=== PATIENT | female | born 1950 | race Caucasian/White ===

== ENCOUNTER 2022-02-07 11:09 | Emergency (ER) | payer MEDICARE, SELFPAY ==
--- NOTE | ~2022-02-07 | XR_ITS ---
EXAMINATION: XR chest 2V 02/07/2022 11:54 INDICATION: Post Covid cough PROCEDURE: 2 view chest COMPARISON: No prior studies for comparison. FINDINGS: The lungs are clear. The cardiomediastinal silhouette is within normal limits. There are no pleural effusions. There is no pneumothorax suspected. The lungs are hyperinflated which is cons istent with, but not diagnostic of chronic obstructive pulmonary disease. IMPRESSION: 1: NO ACUTE CARDIOPULMONARY DISEASE. Reviewed, dictated and finalized at location A.
[2022-02-07 11:16] VITALS: BP 105/64; PULSE 72; RESP 20; TEMP 36.3; O2SAT 100
--- NOTE | 2022-02-07 11:30 | ED.URI ---
HPI - URI/Sore Throat General Chief Complaint: Upper Respiratory Infection Stated Complaint: follow up from covid Time Seen by Provider: 02/07/22 11:32 Source: patient, RN notes reviewed and old records reviewed Mode of arrival: ambulatory Limitations: no limitations History of Present Illness HPI Narrative: 71 year old female who presents to [facility] with complaints of acute cough and chest congestion post COVID. Patient reports that she was diagnosed with COVID on 01/25/2022 and cough is lingering with some mucous production. Patient reports that sh has been taking Mucinex and using cough drops but not helping cough which is keeping her awake at night. Patient reports allergy to Codeine and reports that she can't use albuterol because of her history of a-fib. Patient states that her doctor ordered Flovent for her but not helping much. MD elicited complaint: cough and other (COVID 01/25/2022) Onset (ago): week(s) (almost 2 weeks) Description of mucous: clear Treatments prior to arrival: other (Mucinex, cough drops, Flovent) Related Data Home Medications Medication Instructions Recorded Confirmed alendronate 70 mg tablet 70 mg PO WEEKLY 02/07/22 02/07/22 apixaban 5 mg tablet (Eliquis) 5 mg PO BID 02/07/22 02/07/22 diltiazem HCl 180 mg 180 mg PO DAILY 02/07/22 02/07/22 capsule,extended release 24 hr dronedarone 400 mg tablet (Multaq) 400 mg PO HS 02/07/22 02/07/22 ezetimibe 10 mg tablet 10 mg PO DAILY 02/07/22 02/07/22 fluticasone propionate 110 50 mcg inhalation DAILY 02/07/22 02/07/22 mcg/actuation HFA aerosol inhaler (Flovent HFA) gabapentin 100 mg capsule 100 mg PO HS 02/07/22 02/07/22 levothyroxine 150 mcg tablet 150 mcg PO DAILY 02/07/22 02/07/22 lisinopril 5 mg tablet 5 mg PO DAILY 02/07/22 02/07/22 metoprolol tartrate 25 mg tablet 25 mg PO BID 02/07/22 02/07/22 mupirocin 2 % topical ointment 1 ea topical DAILY 02/07/22 02/07/22 Allergies Allergy/AdvReac Type Severity Reaction Status Date / Time codeine AdvReac Unknown Nausea and Verified 02/07/22 11:18 Vomiting Review of Systems Review of Systems: CONSTITUTIONAL: Denies fever, chills, or sweats. EYES: Denies visual changes, redness, or discharge. ENT: Denies rhinorrhea, congestion, sore throat, or otalgia. CARDIOVASCULAR: Denies chest pain, palpitations, or edema. RESPIRATORY: Positive for cough denies dyspnea. GASTROINTESTINAL: Denies abdominal pain, nausea, vomiting, or diarrhea. GENITOURINARY: Denies dysuria or hematuria. SKIN: Denies rash or itching. MUSCULOSKELETAL: Denies back pain, joint pain, or myalgia. NEUROLOGIC: Denies headache, numbness, or weakness. PSYCHIATRIC: Denies anxiety or depression. All systems reviewed & are unremarkable except as noted in HPI and below PMFSH Past Medical History Medical History (Updated 02/07/22 @ 23:38 by Mary Ngo NP) Asthma Atrial fibrillation Cardiomyopathy Hypothyroidism Implantable loop recorder present Osteoporosis Restless leg syndrome Surgical History Surgical History (Updated 02/07/22 @ 23:34 by Mary Ngo NP) H/O hemorrhoidectomy H/O partial thyroidectomy H/O: hysterectomy Social History Social History (Updated 02/07/22 @ 23:33 by Mary Ngo NP) Smoking status: Never smoker Alcohol intake: unknown Substance use: never Substance use type: does not use Living arrangements: with family Gender identity (if verbalized by the patient): Female Comments At time of signature, agree with nursing past medical, surgical, social and family history. There is no relevant family history pertinent to the presenting complaint Exam Narrative: GENERAL: Well-appearing, well-nourished, and in no acute distress. HEAD: Normocephalic, atraumatic. EYES: PERRLA and EOMI. ENT: Nares clear, no rhinorrhea or epistaxis. Mucous membranes moist.TM's with dull light refles, throat pink with no lesions or exudates or tonsil swelling. NECK: Supple.no lymphadenopathy CHES
[2022-02-07 11:54] VITALS: BP 105/64; PULSE 72; RESP 20; TEMP 36.3; O2SAT 100
== END 2022-02-07 12:10 | disposition home or self-care (01) ==
PROVIDERS: Emergency Provider Registered Nurse; PCP Family Medicine
DX: J06.9 Acute upper respiratory infection, unspecified (principal); Z20.822 Contact with and (suspected) exposure to COVID-19; J45.909 Unspecified asthma, uncomplicated; I48.91 Unspecified atrial fibrillation; E78.00 Pure hypercholesterolemia, unspecified; M81.0 Age-related osteoporosis without current pathological fracture; G25.81 Restless legs syndrome; I42.9 Cardiomyopathy, unspecified
CPT/HCPCS: 71046; 99203; G0463